=== PATIENT | female | born 1980 | race Caucasian/White ===

== ENCOUNTER 2023-02-12 17:39 | Emergency (ER) | payer MEDICARE, OTHER ==
[~2023-02-12] VITALS: Ht 167.6 cm; Wt 106.6 kg
[2023-02-12 18:50] VITALS: TEMP 98.4
[2023-02-12] MEDS ORDERED: GABA300C PO (19:12)
[2023-02-12 22:54] VITALS: BP 143/84; O2SAT 100
== END 2023-02-12 19:28 | disposition home or self-care (01) ==
LOC: ER 17:45
DX: R20.2 Paresthesia of skin (principal); Z60.2 Problems related to living alone
CPT/HCPCS: 70450-TC